=== PATIENT | female | born 1955 | race Two or more races ===

== ENCOUNTER 2016-04-10 12:01 | Inpatient (IN) | payer MEDICARE, OTHER ==
[~2016-04-10] VITALS: Ht 154.9 cm; Wt 89.9 kg
[~2016-04-10 12:01] MED LIST: ACET-2080 PO; AGGR20025 PO; ATOR20TA65 PO; CYCL-309 PO; DICL2100G TP; DIPH25CA85 PO; EXEN5PEN2 SQ; FAMO20 PO; FENO160 PO; HYDR-85 PO; INSLAN SQ; IPRA21SP2 NASAL; IPRA4AER IH; LEVO200 PO; LISI-661 PO; MELO7.5T12 PO; METF500T7 PO; MIDO5 PO; PRAS10TA6 PO; SITA100 PO; TRAZ-144 PO
[2016-04-10 12:50] LABS: GLUCOSE,POINT OF CARE 164 MG/DL (70-110)
[2016-04-10] MEDS ORDERED: NITROGLYCERIN 2% (1 GM=INCH) PACKET TP ONE (13:45)
[2016-04-10] MEDS ORDERED: ASPIRIN 81 MG CHEWABLE TABLET PO ONE (13:45)
[2016-04-10 13:49] LABS: BASOPHILS % (AUTO) 0.5 % (0.0-2.0); EOSINOPHILS % (AUTO) 1.4 % (1.0-6.0); HEMATOCRIT 31.6 % (36-46); HEMOGLOBIN 10.2 g/dL (12.0-16.0); LYMPHOCYTES # (AUTO) 2.3 K/uL (1.0-4.8); LYMPHOCYTES % (AUTO) 28.7 % (22.0-44.0); MEAN CORPUSCULAR HEMOGLOBIN 30.2 pg (26.0-34.0); MEAN CORPUSCULAR HGB CONC 32.2 G/dL (31.0-37.0); MEAN CORPUSCULAR VOLUME 94 fL (80-100); MONOCYTES # (AUTO) 0.5 K/uL (0.1-1.0); MONOCYTES % (AUTO) 5.9 % (2.0-9.0); NEUTROPHILS % (AUTO) 63.5 % (40.0-70.0); PLATELET COUNT (AUTO) 259 K/uL (150-450); RED BLOOD CELL COUNT(AUTO) 3.37 MIL/uL (4.00-5.20); RED CELL DISTRIBUTION WIDTH 13.4 % (11.5-14.5); WHITE BLOOD COUNT (AUTO) 7.9 K/uL (4.5-11.0)
[2016-04-10 13:53] LABS: ANION GAP 8 mmol/L (8-16); CALCIUM, TOTAL 8.3 mg/dL (8.8-10.5); CARBON DIOXIDE 27 mmol/L (22-29); CHLORIDE 104 mmol/L (98-107); GLOMERULAR FILTR. RATE CALC > 60 mL/min (>60); POTASSIUM 4.5 mmol/L (3.5-5.1); SODIUM SERUM 139 mmol/L (136-145); UREA NITROGEN, BLOOD 18 mg/dL (7-18)
[2016-04-10 13:59] LABS: PROTHROMBIN TIME 10.2 SEC (9.4-11.6)
[2016-04-10 14:07] LABS: B-TYPE NATRIURETIC PEPTIDE 81 pg/mL (0-100)
[2016-04-10 14:18] LABS: ALANINE AMINOTRANSFERASE 28 U/L (12-78); ASPARTATE AMINOTRANSFERASE 19 U/L (15-37); BILIRUBIN,TOTAL 0.5 mg/dL (0.1-1.0); CREATINE KINASE MB 0.6 ng/mL (0-5); CREATINE KINASE, TOTAL 83 U/L (26-192); TOTAL PROTEIN, SERUM 6.9 g/dL (6.4-8.2)
[2016-04-10 14:24] LABS: APPEARANCE,URINE CLOUDY (CLEAR); GLUCOSE, URINE (UA) NEGATIVE (NEGATIVE); KETONES,URINE NEGATIVE (NEGATIVE); LEUKOCYTE ESTERASE ,URINE TRACE (NEGATIVE); OCCULT BLOOD,URINE NEGATIVE (NEGATIVE); PH,URINE 6.5 (5.0-8.0); PROTEIN,URINE SEE CONFIRM (NEGATIVE)
[2016-04-10 14:32] LABS: ADD UA MICROSCOPIC YES
[2016-04-10 14:33] LABS: SULFOSALICYLIC ACID,URINE 3+ (Negative)
[2016-04-10 14:34] LABS: RBC,URINE None Seen /HPF (0-2); SQUAMOUS EPITHELIAL CELL,UR Many /LPF (None Seen)
[2016-04-10] MEDS ORDERED: ACETAMINOPHEN 325 MG TABLET PO PRN (15:45)
[2016-04-10] MEDS ORDERED: ONDANSETRON HCL 4 MG/2 ML VIAL IVP PRN (15:45)
[2016-04-10] MEDS ORDERED: 0.9% SODIUM CHLORIDE 10 ML SYRINGE IVP PRN (15:45)
[2016-04-10] MEDS ORDERED: METF500T4 PO (15:50)
[2016-04-10] MEDS ORDERED: LISI-662 PO (15:50)
[2016-04-10] MEDS ORDERED: ATOR40TA28 PO (15:51)
[2016-04-10 17:21] LABS: GLUCOSE,POINT OF CARE 143 MG/DL (70-110)
[2016-04-10] MEDS ORDERED: ZOLPIDEM TARTRATE 10 MG TABLET PO PRN (18:15)
[2016-04-10] MEDS ORDERED: MAGNESIUM HYDROXIDE SUSPENSION 30 ML UDCUP PO PRN (18:15)
[2016-04-10] MEDS ORDERED: DEXTROSE 50%-WATER 25 GM/50 ML SYRINGE IVP PRN (18:15)
[2016-04-10] MEDS ORDERED: BISACODYL 10 MG RECTAL RECTAL SUPPOSITORY PR PRN (18:15)
[2016-04-10] MEDS: ACETAMINOPHEN 325 MG TABLET PO PRN (19:53)
[2016-04-10 20:52] VITALS: BP 144/66
[2016-04-10] MEDS: ASPIRIN/DIPYRIDAMOLE ER 25/200 MG ER CAPSULE PO SCH (22:01)
[2016-04-10] MEDS: DICLOFENAC SODIUM 1% 100 GM GEL [2GM] TP SCH (22:01)
[2016-04-10] MEDS: INSULIN ASPART 100 UNITS/ML SQ PRN (22:02)
[2016-04-10 23:50] VITALS: BP 115/50
[2016-04-11] MEDS: ONDANSETRON HCL 4 MG/2 ML VIAL IVP PRN ×2 (00:19→08:27)
[2016-04-11] MEDS: OxyCODONE HCL/ACETAMINOPHEN 5-325 MG TABLET PO PRN ×2 (00:24→06:15)
[2016-04-11] MEDS: ALBUTEROL SULFATE/IPRATROPIUM 100-20 MCG/SPRAY 4 GM INHALER IH SCH ×3 (00:31→12:00)
[2016-04-11 04:22] VITALS: BP 116/58
[2016-04-11 06:15] VITALS: BP 134/57
[2016-04-11] MEDS ORDERED: LEVOTHYROXINE SODIUM 200 MCG TABLET PO SCH (06:30)
[2016-04-11] MEDS: INSULIN ASPART 100 UNITS/ML SQ PRN ×2 (06:32→12:13)
[2016-04-11 06:43] LABS: BASOPHILS % (AUTO) 0.4 % (0.0-2.0); EOSINOPHILS % (AUTO) 1.9 % (1.0-6.0); HEMATOCRIT 28.2 % (36-46); HEMOGLOBIN 9.1 g/dL (12.0-16.0); LYMPHOCYTES # (AUTO) 3.1 K/uL (1.0-4.8); LYMPHOCYTES % (AUTO) 37.3 % (22.0-44.0); MEAN CORPUSCULAR HEMOGLOBIN 30.5 pg (26.0-34.0); MEAN CORPUSCULAR HGB CONC 32.4 G/dL (31.0-37.0); MEAN CORPUSCULAR VOLUME 94 fL (80-100); MONOCYTES # (AUTO) 0.6 K/uL (0.1-1.0); MONOCYTES % (AUTO) 6.8 % (2.0-9.0); NEUTROPHILS # (AUTO) 4.5 K/uL (1.8-7.7); NEUTROPHILS % (AUTO) 53.6 % (40.0-70.0); PLATELET COUNT (AUTO) 228 K/uL (150-450); RED CELL DISTRIBUTION WIDTH 13.6 % (11.5-14.5); WHITE BLOOD COUNT (AUTO) 8.4 K/uL (4.5-11.0)
[2016-04-11] MEDS ORDERED: NITROGLYCERIN 2% (1 GM=INCH) PACKET TP PRN (06:45)
[2016-04-11 07:18] VITALS: BP 133/61
[2016-04-11 07:23] LABS: ALBUMIN 2.6 g/dL (3.4-5.0); BILIRUBIN,TOTAL 0.4 mg/dL (0.1-1.0); CREATININE 1.12 mg/dL (0.60-1.30); POTASSIUM 4.9 mmol/L (3.5-5.1); TOTAL PROTEIN, SERUM 6.1 g/dL (6.4-8.2)
[2016-04-11] MEDS ORDERED: MetFORMIN HCL 500 MG TABLET PO SCH (08:00)
[2016-04-11] MEDS ORDERED: MELOXICAM 7.5 MG TABLET PO SCH (08:00)
[2016-04-11 08:38] LABS: GLUCOSE COMMENT 1 Received Meds; GLUCOSE,POINT OF CARE 317 MG/DL (70-110)
[2016-04-11 08:38] LABS: GLUCOSE COMMENT 1 Received Meds; GLUCOSE,POINT OF CARE 216 MG/DL (70-110)
[2016-04-11] MEDS ORDERED: ATORVASTATIN CALCIUM 40 MG TABLET PO SCH (09:00)
[2016-04-11] MEDS ORDERED: PANTOPRAZOLE SODIUM 40 MG DR TABLET PO SCH (09:00)
[2016-04-11] MEDS ORDERED: LISINOPRIL 20 MG TABLET PO SCH (09:00)
[2016-04-11] MEDS ORDERED: SitaGLIPtin PHOSPHATE 100 MG TABLET PO SCH (09:00)
[2016-04-11] MEDS ORDERED: PRASUGREL HCL 10 MG TABLET PO SCH (09:00)
[2016-04-11] MEDS ORDERED: CYCLOBENZAPRINE HCL 10 MG TABLET PO SCH (09:00)
[2016-04-11] MEDS ORDERED: NICOTINE 14 MG/24 HOUR PATCH TD SCH (09:00)
[2016-04-11] MEDS ORDERED: FENOFIBRATE 160 MG TABLET PO SCH (09:00)
[2016-04-11] MEDS: ASPIRIN/DIPYRIDAMOLE ER 25/200 MG ER CAPSULE PO SCH (09:50)
[2016-04-11] MEDS: HEPARIN SODIUM,PORCINE 5,000 UNITS/ML VIAL SQ SCH ×2 (09:50)
[2016-04-11] MEDS: DICLOFENAC SODIUM 1% 100 GM GEL [2GM] TP SCH (09:51)
[2016-04-11 11:22] VITALS: BP 142/61
[2016-04-11] MEDS: ACETAMINOPHEN 325 MG TABLET PO PRN (12:10)
[2016-04-11] MEDS ORDERED: OMEP20 PO (14:53)
[2016-04-11] MEDS ORDERED: TraZODone HCL 50 MG TABLET PO SCH (21:00)
[2016-04-13 02:11] LABS: GLUCOSE COMMENT 1 Received Meds; GLUCOSE,POINT OF CARE 306 MG/DL (70-110)
== END 2016-04-11 15:15 | disposition home or self-care (01) | DRG 303 ==
LOC: EMS 12:04 → 5S 18:29
PROVIDERS: ADMIT Hospitalist; ATTEND Hospitalist
DX: I25.110 Atherosclerotic heart disease of native coronary artery with unstable angina pectoris (principal); E44.1 Mild protein-calorie malnutrition; D64.9 Anemia, unspecified; E03.9 Hypothyroidism, unspecified; E11.9 Type 2 diabetes mellitus without complications; E78.5 Hyperlipidemia, unspecified; I10 Essential (primary) hypertension; J44.9 Chronic obstructive pulmonary disease, unspecified; Z72.0 Tobacco use; Z86.73 Personal history of transient ischemic attack (TIA), and cerebral infarction without residual deficits; Z88.1 Allergy status to other antibiotic agents; Z88.5 Allergy status to narcotic agent; Z88.0 Allergy status to penicillin; Z88.2 Allergy status to sulfonamides; Z88.8 Allergy status to other drugs, medicaments and biological substances; Z79.899 Other long term (current) drug therapy; Z90.49 Acquired absence of other specified parts of digestive tract; Z98.890 Other specified postprocedural states
CPT/HCPCS: 82962; 87086; 93005; 93306; 99285; J1644; J2405

== ENCOUNTER 2016-08-11 16:51 | Emergency (ER) | payer OTHER ==
[~2016-08-11] VITALS: Ht 152.4 cm; Wt 88.6 kg
[~2016-08-11 16:51] MED LIST changes: -ATOR20TA65 PO; +ATOR40TA28 PO; -EXEN5PEN2 SQ; -FAMO20 PO; -IPRA21SP2 NASAL; -LISI-661 PO; +LISI-662 PO; +METF500T4 PO; -METF500T7 PO; -MIDO5 PO; +OMEP20 PO
[2016-08-11 17:40] LABS: BASOPHILS # (AUTO) 0.04 K/uL (0.00-0.20); BASOPHILS % (AUTO) 0.3 % (0.0-2.0); EOSINOPHILS # (AUTO) 0.06 K/uL (0.00-0.70); HEMATOCRIT 31.1 % (36-46); HEMOGLOBIN 10.3 g/dL (12.0-16.0); LYMPHOCYTES # (AUTO) 2.6 K/uL (1.0-4.8); LYMPHOCYTES % (AUTO) 24.4 % (22.0-44.0); MEAN CORPUSCULAR HEMOGLOBIN 30.6 pg (26.0-34.0); MEAN CORPUSCULAR HGB CONC 33.2 G/dL (31.0-37.0); MEAN CORPUSCULAR VOLUME 92 fL (80-100); MONOCYTES # (AUTO) 0.6 K/uL (0.1-1.0); MONOCYTES % (AUTO) 5.2 % (2.0-9.0); NEUTROPHILS # (AUTO) 7.4 K/uL (1.8-7.7); NEUTROPHILS % (AUTO) 69.5 % (40.0-70.0); PLATELET COUNT (AUTO) 275 K/uL (150-450); RED BLOOD CELL COUNT(AUTO) 3.37 MIL/uL (4.00-5.20); RED CELL DISTRIBUTION WIDTH 13.8 % (11.5-14.5); WHITE BLOOD COUNT (AUTO) 10.7 K/uL (4.5-11.0)
[2016-08-11 17:50] LABS: ANION GAP 10 mmol/L (8-16); CALCIUM, TOTAL 8.7 mg/dL (8.8-10.5); CARBON DIOXIDE 26 mmol/L (22-29); CHLORIDE 103 mmol/L (98-107); CREATININE 1.27 mg/dL (0.60-1.30); GLOMERULAR FILTR. RATE CALC 43 mL/min (>60); POTASSIUM 4.7 mmol/L (3.5-5.1); SODIUM SERUM 139 mmol/L (136-145); UREA NITROGEN, BLOOD 25 mg/dL (7-18)
[2016-08-11 17:56] LABS: ALANINE AMINOTRANSFERASE 32 U/L (12-78); ALBUMIN 3.2 g/dL (3.4-5.0); ASPARTATE AMINOTRANSFERASE 20 U/L (15-37); BILIRUBIN,TOTAL 0.8 mg/dL (0.1-1.0); CREATINE KINASE, TOTAL 69 U/L (26-192); TOTAL PROTEIN, SERUM 7.1 g/dL (6.4-8.2)
[2016-08-11 18:08] LABS: B-TYPE NATRIURETIC PEPTIDE 28 pg/mL (0-100)
[2016-08-11] MEDS ORDERED: PROCHLORPERAZINE EDISYLATE 5 MG/ML 2 ML VIAL IVP ONE (19:00)
[2016-08-11] MEDS ORDERED: PANTOPRAZOLE SODIUM 40 MG/VIAL IVP ONE (19:00)
[2016-08-11] MEDS ORDERED: FentaNYL CITRATE-PF 100 MCG/2 ML VIAL IVP ONE (19:00)
[2016-08-11 19:13] LABS: APPEARANCE,URINE CLEAR (CLEAR); GLUCOSE, URINE (UA) NEGATIVE (NEGATIVE); KETONES,URINE NEGATIVE (NEGATIVE); LEUKOCYTE ESTERASE ,URINE NEGATIVE (NEGATIVE); OCCULT BLOOD,URINE NEGATIVE (NEGATIVE); PROTEIN,URINE SEE CONFIRM (NEGATIVE)
[2016-08-11] MEDS ORDERED: SODIUM CHLORIDE 0.9% 1,000 ML IV ONE (19:15)
[2016-08-11 19:24] LABS: ADD UA MICROSCOPIC YES
[2016-08-11 19:28] LABS: RBC,URINE 0-2 /HPF (0-2); SQUAMOUS EPITHELIAL CELL,UR Few /LPF (None Seen); SULFOSALICYLIC ACID,URINE 4+ (Negative)
[2016-08-11] MEDS ORDERED: NITROFURANTOIN/NITROFURAN MAC 100 MG CAPSULE [MACROBID] PO ONE (21:15)
[2016-08-11 21:19] VITALS: BP 145/72
== END 2016-08-11 21:23 | disposition home or self-care (01) ==
LOC: EMS 16:53
DX: I20.8 Other forms of angina pectoris (principal); N39.0 Urinary tract infection, site not specified; E11.9 Type 2 diabetes mellitus without complications; I25.10 Atherosclerotic heart disease of native coronary artery without angina pectoris; I10 Essential (primary) hypertension; Z88.8 Allergy status to other drugs, medicaments and biological substances; Z86.73 Personal history of transient ischemic attack (TIA), and cerebral infarction without residual deficits; Z88.0 Allergy status to penicillin; Z79.4 Long term (current) use of insulin; Z88.1 Allergy status to other antibiotic agents; Z88.5 Allergy status to narcotic agent; Z88.2 Allergy status to sulfonamides
CPT/HCPCS: 36415; 74022; 80053; 81001; 81002; 82550; 83690; 83880; 84484; 85025; 87086; 93005; 96361; 96374; 96375; 99285; C9113; J0780; J3010; J7030; 82962

== ENCOUNTER 2017-04-28 08:13 | Day surgery (SDC) | payer OTHER ==
[~2017-04-28] VITALS: Ht 154.9 cm; Wt 98.2 kg
[~2017-04-28 08:13] MED LIST changes: +0.9% SODIUM CHLORIDE 10 ML SYRINGE IVP PRN
[2017-04-28] MEDS ORDERED: METOPROLOL TARTRATE 50 MG TABLET PO ONE (08:30)
[2017-04-28] MEDS ORDERED: 0.9% SODIUM CHLORIDE 10 ML SYRINGE IVP ONE (08:36)
[2017-04-28] MEDS ORDERED: IOVERSOL 350 MG/ML 150 ML VIAL ONE (09:02)
[2017-04-28 09:21] LABS: CALCIUM, TOTAL 8.6 mg/dL (8.8-10.5); CREATININE 1.2 mg/dL (0.60-1.30); POTASSIUM 4.7 mmol/L (3.5-5.1)
[2017-04-28] MEDS ORDERED: NITROGLYCERIN 400 MCG/SUBLINGUAL SPRAY 4.9 GM BOTTLE SL ONE ×2 (09:26→10:01)
[2017-04-28] MEDS ORDERED: METOPROLOL TARTRATE 5 MG/5 ML VIAL ONE (09:26)
[2017-04-28] MEDS ORDERED: METOPROLOL TARTRATE 5 MG/5 ML VIAL IVP ONE (10:09)
== END 2017-04-28 10:45 | disposition home or self-care (01) ==
LOC: SURGERY 08:13 → EDSTATUS 10:00 → SURGERY 10:45
PROVIDERS: ATTEND Internal Medicine Cardiovascular Disease
DX: I25.10 Atherosclerotic heart disease of native coronary artery without angina pectoris (principal); I35.0 Nonrheumatic aortic (valve) stenosis; E11.9 Type 2 diabetes mellitus without complications; E78.5 Hyperlipidemia, unspecified; E03.9 Hypothyroidism, unspecified; M17.0 Bilateral primary osteoarthritis of knee; M16.0 Bilateral primary osteoarthritis of hip; M19.032 Primary osteoarthritis, left wrist; M19.031 Primary osteoarthritis, right wrist; I11.9 Hypertensive heart disease without heart failure; Z86.73 Personal history of transient ischemic attack (TIA), and cerebral infarction without residual deficits; Z95.5 Presence of coronary angioplasty implant and graft; Z79.82 Long term (current) use of aspirin; Z88.1 Allergy status to other antibiotic agents; Z79.4 Long term (current) use of insulin; Z86.79 Personal history of other diseases of the circulatory system; Z88.0 Allergy status to penicillin; Z88.6 Allergy status to analgesic agent; Z88.2 Allergy status to sulfonamides; Z91.013 Allergy to seafood; Z87.891 Personal history of nicotine dependence; Z72.89 Other problems related to lifestyle; Z90.49 Acquired absence of other specified parts of digestive tract; Z85.3 Personal history of malignant neoplasm of breast; Z79.899 Other long term (current) drug therapy; Z98.890 Other specified postprocedural states; Z88.8 Allergy status to other drugs, medicaments and biological substances
CPT/HCPCS: 36415; 75574; 80048; 93005; J3490; Q9967

== ENCOUNTER 2017-12-05 13:49 | Emergency (ER) | payer OTHER ==
[~2017-12-05] VITALS: Ht 149.9 cm; Wt 95.5 kg
[~2017-12-05 13:49] MED LIST changes: -0.9% SODIUM CHLORIDE 10 ML SYRINGE IVP PRN; +ACET1TAB12 PO; -AGGR20025 PO; +AMLO-511 PO; +BACL10TA PO; +CHOL200059 PO; +EXEN5PEN2 SQ; +FAMO20 PO; -HYDR-85 PO; +INSNOV SQ; -IPRA4AER IH; +LIDOCAINE 5% PATCH TD; +LOSA25TA16 PO; -MELO7.5T12 PO; +METF-960 PO; -METF500T4 PO; +NITR.4 SL; +PROM25 PO; -TRAZ-144 PO; +TRAZ-184 PO; +VERA120 PO
[2017-12-05] MEDS ORDERED: ISOS30TA6 PO (14:03)
[2017-12-05 14:09] LABS: GLUCOSE,POINT OF CARE 148 MG/DL (70-110)
[2017-12-05 15:07] LABS: BASOPHILS % (AUTO) 0.6 % (0.0-2.0); EOSINOPHILS % (AUTO) 1.2 % (1.0-6.0); HEMATOCRIT 31.6 % (36-46); HEMOGLOBIN 10.5 g/dL (12.0-16.0); LYMPHOCYTES # (AUTO) 2.4 K/uL (1.0-4.8); LYMPHOCYTES % (AUTO) 24.1 % (22.0-44.0); MEAN CORPUSCULAR HEMOGLOBIN 29.9 pg (26.0-34.0); MEAN CORPUSCULAR HGB CONC 33.2 G/dL (31.0-37.0); MEAN CORPUSCULAR VOLUME 90 fL (80-100); MONOCYTES # (AUTO) 0.5 K/uL (0.1-1.0); MONOCYTES % (AUTO) 5.5 % (2.0-9.0); NEUTROPHILS # (AUTO) 6.8 K/uL (1.8-7.7); NEUTROPHILS % (AUTO) 68.6 % (40.0-70.0); PLATELET COUNT (AUTO) 269 K/uL (150-450); RED CELL DISTRIBUTION WIDTH 14.2 % (11.5-14.5)
[2017-12-05 15:09] LABS: CALCIUM, TOTAL 8.7 mg/dL (8.8-10.5); CREATININE 1.83 mg/dL (0.60-1.30); POTASSIUM 4.8 mmol/L (3.5-5.1)
[2017-12-05 15:15] LABS: ALBUMIN 3.1 g/dL (3.4-5.0); BILIRUBIN,TOTAL 0.4 mg/dL (0.1-1.0); TOTAL PROTEIN, SERUM 7.4 g/dL (6.4-8.2)
[2017-12-05] MEDS ORDERED: SODIUM CHLORIDE 0.9% 1,000 ML IV ONE (17:45)
[2017-12-05] MEDS ORDERED: OxyCODONE HCL/ACETAMINOPHEN 5-325 MG TABLET PO ONE (17:45)
[2017-12-05] MEDS ORDERED: ONDANSETRON HCL 4 MG/2 ML VIAL IVP ONE (17:45)
[2017-12-05] MEDS ORDERED: CHOL50004 PO (17:47)
[2017-12-05] MEDS ORDERED: LIDO700A15 TD (17:47)
[2017-12-05 18:03] LABS: APPEARANCE,URINE CLEAR (CLEAR); BILIRUBIN,URINE NEGATIVE (NEGATIVE); GLUCOSE, URINE (UA) >=1000 mg/dL (NEGATIVE); KETONES,URINE NEGATIVE (NEGATIVE); LEUKOCYTE ESTERASE ,URINE NEGATIVE (NEGATIVE); NITRATE,URINE NEGATIVE (NEGATIVE); OCCULT BLOOD,URINE NEGATIVE (NEGATIVE); PROTEIN,URINE SEE CONFIRM (NEGATIVE); UROBILINOGEN,URINE 0.2 mg/dL (<=1.0)
[2017-12-05 18:06] LABS: AMPHET/METH SCREEN,URINE NEGATIVE (NEGATIVE); BARBITURATE SCREEN, URINE NEGATIVE (NEGATIVE); BENZODIAZEPINES SCREEN,URINE NEGATIVE (NEGATIVE); CANNABINOID SCREEN,URINE NEGATIVE (NEGATIVE); COCAINE SCREEN,URINE NEGATIVE (NEGATIVE); METHADONE SCREEN, URINE NEGATIVE (NEGATIVE); OPIATE SCREEN,URINE NEGATIVE (NEGATIVE)
[2017-12-05 18:08] LABS: PHENCYCLIDINE SCREEN,URINE NEGATIVE (NEGATIVE)
[2017-12-05 18:13] LABS: SULFOSALICYLIC ACID,URINE 2+ (Negative)
[2017-12-05 18:14] LABS: BACTERIA,URINE Moderate /HPF (None Seen); RBC,URINE None Seen /HPF (0-2); SQUAMOUS EPITHELIAL CELL,UR Moderate /LPF (None Seen)
[2017-12-05] MEDS ORDERED: DIAZEPAM 5 MG/ML 2 ML SYRINGE IVP ONE (19:30)
[2017-12-05 19:36] LABS: CALCIUM, TOTAL 7.8 mg/dL (8.8-10.5); CREATININE 1.69 mg/dL (0.60-1.30)
[2017-12-05 19:59] VITALS: BP 116/60
== END 2017-12-05 20:11 | disposition home or self-care (01) ==
LOC: EMS 13:51
DX: E86.0 Dehydration (principal); G43.909 Migraine, unspecified, not intractable, without status migrainosus; M25.511 Pain in right shoulder; M25.512 Pain in left shoulder; M54.2 Cervicalgia; R07.9 Chest pain, unspecified; F41.9 Anxiety disorder, unspecified; I25.10 Atherosclerotic heart disease of native coronary artery without angina pectoris; E11.9 Type 2 diabetes mellitus without complications; E78.00 Pure hypercholesterolemia, unspecified; I10 Essential (primary) hypertension; E03.9 Hypothyroidism, unspecified; E89.0 Postprocedural hypothyroidism; Z87.440 Personal history of urinary (tract) infections; Z90.49 Acquired absence of other specified parts of digestive tract; Z86.73 Personal history of transient ischemic attack (TIA), and cerebral infarction without residual deficits; Z88.1 Allergy status to other antibiotic agents; Z88.5 Allergy status to narcotic agent; Z88.0 Allergy status to penicillin; Z88.2 Allergy status to sulfonamides; Z88.8 Allergy status to other drugs, medicaments and biological substances; Z79.4 Long term (current) use of insulin; Z79.899 Other long term (current) drug therapy; Z79.84 Long term (current) use of oral hypoglycemic drugs
CPT/HCPCS: 36415; 70450; 71045; 80048; 80053; 80307; 81001; 82948; 82962; 83690; 83880; 84484; 85025; 87086; 93005; 96361; 96374; 96375; 99285; J1885; J2405; J7030

== ENCOUNTER 2019-07-25 15:33 | Emergency (ER) | payer OTHER ==
[~2019-07-25] VITALS: Ht 152.4 cm; Wt 86.4 kg
[~2019-07-25 15:33] MED LIST changes: -ACET1TAB12 PO; -AMLO-511 PO; +CHOL125C2 PO; -CHOL200059 PO; -CYCL-309 PO; -DICL2100G TP; -DIPH25CA85 PO; -FENO160 PO; +ISOS30TA6 PO; +LIDO700A15 TD; -LIDOCAINE 5% PATCH TD; -LOSA25TA16 PO; -NITR.4 SL; +NITR0.4T52 SL; -OMEP20 PO
[2019-07-25] MEDS ORDERED: EMPA25TA PO (16:44)
[2019-07-25] MEDS ORDERED: ASPI-728 PO (16:44)
[2019-07-25] MEDS ORDERED: AMLO10TA7 PO (16:44)
[2019-07-25] MEDS ORDERED: CILO100T PO (16:44)
[2019-07-25] MEDS ORDERED: 0.9% SODIUM CHLORIDE 10 ML SYRINGE IVP PRN (17:00)
[2019-07-25 17:21] LABS: BASOPHILS % (AUTO) 0.4 % (0.0-2.0); EOSINOPHILS % (AUTO) 0.2 % (1.0-6.0); HEMATOCRIT 35.4 % (36-46); HEMOGLOBIN 11.3 g/dL (12.0-16.0); LYMPHOCYTES # (AUTO) 1.5 K/uL (1.0-4.8); LYMPHOCYTES % (AUTO) 16.5 % (22.0-44.0); MEAN CORPUSCULAR HEMOGLOBIN 30.3 pg (26.0-34.0); MEAN CORPUSCULAR HGB CONC 32.1 G/dL (31.0-37.0); MEAN CORPUSCULAR VOLUME 94 fL (80-100); MONOCYTES # (AUTO) 0.3 K/uL (0.1-1.0); MONOCYTES % (AUTO) 2.8 % (2.0-9.0); NEUTROPHILS # (AUTO) 7.3 K/uL (1.8-7.7); NEUTROPHILS % (AUTO) 80.1 % (40.0-70.0); PLATELET COUNT (AUTO) 239 K/uL (150-450); RED BLOOD CELL COUNT(AUTO) 3.75 MIL/uL (4.00-5.20); RED CELL DISTRIBUTION WIDTH 13.5 % (11.5-14.5)
[2019-07-25] MEDS ORDERED: FAMOTIDINE 10 MG/ML 2 ML VIAL IVP ONE (17:30)
[2019-07-25] MEDS ORDERED: ONDANSETRON HCL 4 MG/2 ML VIAL IVP ONE (17:30)
[2019-07-25] MEDS ORDERED: PB/HYOSCY/ATR/SCOP/LIDO/MAALOX 55 ML BOTTLE PO ONE (17:30)
[2019-07-25 17:40] LABS: CALCIUM, TOTAL 8.7 mg/dL (8.8-10.5); CREATININE 1.31 mg/dL (0.60-1.30); POTASSIUM 4.4 mmol/L (3.5-5.1)
[2019-07-25] MEDS ORDERED: SODIUM CHLORIDE 0.9% 100 ML ONE (17:45)
[2019-07-25] MEDS ORDERED: IOVERSOL 320 MG/ML 100 ML VIAL ONE (17:45)
[2019-07-25 17:46] LABS: ALBUMIN 3.5 g/dL (3.4-5.0); TOTAL PROTEIN, SERUM 7.2 g/dL (6.4-8.2)
[2019-07-25 18:03] LABS: APPEARANCE,URINE CLEAR (CLEAR); BILIRUBIN,URINE NEGATIVE (NEGATIVE); GLUCOSE, URINE (UA) >=1000 mg/dL (NEGATIVE); KETONES,URINE 15 mg/dL (NEGATIVE); LEUKOCYTE ESTERASE ,URINE NEGATIVE (NEGATIVE); NITRATE,URINE NEGATIVE (NEGATIVE); OCCULT BLOOD,URINE NEGATIVE (NEGATIVE); PROTEIN,URINE SEE CONFIRM (NEGATIVE)
[2019-07-25 18:06] LABS: SULFOSALICYLIC ACID,URINE 2+ (Negative)
[2019-07-25 18:07] LABS: BACTERIA,URINE None Seen /HPF (None Seen); RBC,URINE None Seen /HPF (0-2); SQUAMOUS EPITHELIAL CELL,UR Moderate /LPF (None Seen); WBC,URINE None Seen /HPF (0-5)
[2019-07-25] MEDS ORDERED: MORPHINE SULFATE 2 MG/ML SYRINGE IVP ONE (18:15)
[2019-07-25 18:39] LABS: LACTIC ACID 0.8 mmol/L (0.4-2.0)
[2019-07-25 19:56] VITALS: BP 128/70
== END 2019-07-25 20:34 | disposition home or self-care (01) ==
LOC: EMS 15:39
DX: R10.13 Epigastric pain (principal); R11.2 Nausea with vomiting, unspecified; F41.9 Anxiety disorder, unspecified; I25.10 Atherosclerotic heart disease of native coronary artery without angina pectoris; E11.9 Type 2 diabetes mellitus without complications; E78.00 Pure hypercholesterolemia, unspecified; I10 Essential (primary) hypertension; Z03.818 Encounter for observation for suspected exposure to other biological agents ruled out; Z90.89 Acquired absence of other organs; Z86.73 Personal history of transient ischemic attack (TIA), and cerebral infarction without residual deficits; Z88.6 Allergy status to analgesic agent; Z88.1 Allergy status to other antibiotic agents; Z88.5 Allergy status to narcotic agent; Z88.0 Allergy status to penicillin; Z88.8 Allergy status to other drugs, medicaments and biological substances; Z79.82 Long term (current) use of aspirin; Z79.4 Long term (current) use of insulin; Z79.84 Long term (current) use of oral hypoglycemic drugs
CPT/HCPCS: 36415; 71045; 74177; 80053; 81001; 83605; 83690; 84484; 85025; 85610; 93005; 96374; 96375; 99285; J2270; J2405; J3490; J7050; Q9967; U0003

== ENCOUNTER 2020-11-18 13:21 | Emergency (ER) | payer OTHER ==
[~2020-11-18] VITALS: Ht 165.1 cm; Wt 79.5 kg
[~2020-11-18 13:21] MED LIST changes: -ACET-2080 PO; +AMLO-258 PO; +ASPI-1450 PO; -CHOL125C2 PO; +CHOL500013 PO; +CILO100T PO; +EMPA25TA PO; -EXEN5PEN2 SQ; -ISOS30TA6 PO; +ISOS30TA92 PO; -LIDO700A15 TD; -LISI-662 PO; +LISI-894 PO; -NITR0.4T52 SL; -PROM25 PO
[2020-11-18 14:04] LABS: COVID AG,FIA SOURCE NASAL SWAB
[2020-11-18 14:46] LABS: BASOPHILS % (AUTO) 0.3 % (0.0-2.0); HEMATOCRIT 30.6 % (36-46); HEMOGLOBIN 9.8 g/dL (12.0-16.0); LYMPHOCYTES # (AUTO) 3.5 K/uL (1.0-4.8); LYMPHOCYTES % (AUTO) 38.1 % (22.0-44.0); MEAN CORPUSCULAR HEMOGLOBIN 31.2 pg (26.0-34.0); MEAN CORPUSCULAR HGB CONC 32.1 G/dL (31.0-37.0); MEAN CORPUSCULAR VOLUME 97 fL (80-100); MONOCYTES # (AUTO) 0.7 K/uL (0.1-1.0); MONOCYTES % (AUTO) 8.2 % (2.0-9.0); NEUTROPHILS # (AUTO) 4.7 K/uL (1.8-7.7); NEUTROPHILS % (AUTO) 51.4 % (40.0-70.0); PLATELET COUNT (AUTO) 322 K/uL (150-450); RED BLOOD CELL COUNT(AUTO) 3.15 MIL/uL (4.00-5.20); RED CELL DISTRIBUTION WIDTH 14.1 % (11.5-14.5)
[2020-11-18 15:14] LABS: ALBUMIN 3.4 g/dL (3.4-5.0); BILIRUBIN,TOTAL 0.2 mg/dL (0.1-1.0); CALCIUM, TOTAL 8.7 mg/dL (8.8-10.5); CREATININE 2.05 mg/dL (0.60-1.30); POTASSIUM 4.2 mmol/L (3.5-5.1); TOTAL PROTEIN, SERUM 6.9 g/dL (6.4-8.2)
[2020-11-18] MEDS ORDERED: ASPI-989 PO (15:53)
[2020-11-18] MEDS ORDERED: DEXTROSE 50%-WATER 25 GM/50 ML SYRINGE IVP ONE (16:00)
[2020-11-18 16:47] LABS: GLUCOMETER DEV NAME(LOC) ERT.5; GLUCOSE,POINT OF CARE 50 MG/DL (70-110)
[2020-11-18 18:20] LABS: GLUCOMETER DEV NAME(LOC) ERT.5; GLUCOSE,POINT OF CARE 108 MG/DL (70-110)
[2020-11-18 19:26] LABS: GLUCOSE,POINT OF CARE 159 MG/DL (70-110)
[2020-11-18 20:06] VITALS: BP 132/59
== END 2020-11-18 20:30 | disposition home or self-care (01) ==
LOC: EMS 13:21
DX: E11.649 Type 2 diabetes mellitus with hypoglycemia without coma (principal); I25.10 Atherosclerotic heart disease of native coronary artery without angina pectoris; E78.00 Pure hypercholesterolemia, unspecified; F41.9 Anxiety disorder, unspecified; I10 Essential (primary) hypertension; Z20.822 Contact with and (suspected) exposure to COVID-19; Z86.73 Personal history of transient ischemic attack (TIA), and cerebral infarction without residual deficits; Z79.4 Long term (current) use of insulin; Z79.899 Other long term (current) drug therapy; Z88.1 Allergy status to other antibiotic agents; Z88.5 Allergy status to narcotic agent; Z88.0 Allergy status to penicillin; Z88.2 Allergy status to sulfonamides
CPT/HCPCS: 70450; 80053; 82962; 84484; 85025; 87426; 93005; 96374; 99285; U0003; 82948

== ENCOUNTER 2022-05-15 09:43 | Inpatient (IN) | payer OTHER ==
[~2022-05-15] VITALS: Ht 152.4 cm; Wt 87.0 kg
[~2022-05-15 09:43] MED LIST changes: -ASPI-1450 PO; +ASPI-989 PO; -CILO100T PO; +CILO100T3 PO; -EMPA25TA PO; +EMPA25TA3 PO; +METF-1211 PO; -METF-960 PO; -VERA120 PO; +VERA120T21 PO
[2022-05-15 10:26] LABS: GLUCOMETER DEV NAME(LOC) ERT.5; GLUCOSE,POINT OF CARE 125 MG/DL (70-110)
[2022-05-15 10:37] LABS: BASOPHILS % (AUTO) 0.4 % (0.0-2.0); HEMATOCRIT 30.6 % (36-46); HEMOGLOBIN 10.1 g/dL (12.0-16.0); LYMPHOCYTES # (AUTO) 2.4 K/uL (1.0-4.8); LYMPHOCYTES % (AUTO) 26.1 % (22.0-44.0); MEAN CORPUSCULAR HGB CONC 33.1 G/dL (31.0-37.0); MEAN CORPUSCULAR VOLUME 94 fL (80-100); MONOCYTES # (AUTO) 0.8 K/uL (0.1-1.0); MONOCYTES % (AUTO) 8.2 % (2.0-9.0); NEUTROPHILS # (AUTO) 5.8 K/uL (1.8-7.7); NEUTROPHILS % (AUTO) 63.3 % (40.0-70.0); PLATELET COUNT (AUTO) 246 K/uL (150-450); RED BLOOD CELL COUNT(AUTO) 3.26 MIL/uL (4.00-5.20); RED CELL DISTRIBUTION WIDTH 13.5 % (11.5-14.5)
[2022-05-15 10:51] LABS: INR 0.9 (0.9-1.1); PROTHROMBIN TIME 9.8 SEC (9.4-11.6)
[2022-05-15 10:59] LABS: ALBUMIN 3.3 g/dL (3.4-5.0); BILIRUBIN,TOTAL 0.4 mg/dL (0.1-1.0); CREATININE 1.58 mg/dL (0.60-1.30); THYROID STIMULATING HORMONE 28.1 uIU/mL (0.36-3.74); TOTAL PROTEIN, SERUM 6.8 g/dL (6.4-8.2)
[2022-05-15 11:19] LABS: COVID AG,FIA SOURCE NASAL SWAB
[2022-05-15 11:21] LABS: APPEARANCE,URINE CLEAR (CLEAR); BILIRUBIN,URINE NEGATIVE (NEGATIVE); GLUCOSE, URINE (UA) 70-100 mg/dL (NEGATIVE); KETONES,URINE NEGATIVE (NEGATIVE); LEUKOCYTE ESTERASE ,URINE NEGATIVE (NEGATIVE); NITRATE,URINE NEGATIVE (NEGATIVE); OCCULT BLOOD,URINE NEGATIVE (NEGATIVE); PROTEIN,URINE NEGATIVE (NEGATIVE); SPECIFIC GRAVITIY, URINE 1.007 (1.003-1.030); UROBILINOGEN,URINE <=1.0 mg/dL (<=1.0)
[2022-05-15 11:28] LABS: AMPHET/METH SCREEN,URINE NEGATIVE (NEGATIVE); BARBITURATE SCREEN, URINE NEGATIVE (NEGATIVE); BENZODIAZEPINES SCREEN,URINE NEGATIVE (NEGATIVE); CANNABINOID SCREEN,URINE NEGATIVE (NEGATIVE); COCAINE SCREEN,URINE NEGATIVE (NEGATIVE); METHADONE SCREEN, URINE NEGATIVE (NEGATIVE); OPIATE SCREEN,URINE NEGATIVE (NEGATIVE); PHENCYCLIDINE SCREEN,URINE NEGATIVE (NEGATIVE)
[2022-05-15] MEDS ORDERED: INSULIN REGULAR, HUMAN 100 UNITS/ML IVP ONE (11:30)
[2022-05-15] MEDS ORDERED: SODIUM POLYSTYRENE SULFONATE 15 GM/60 ML SUSPENSION BOTTLE PO ONE (11:30)
[2022-05-15] MEDS ORDERED: SODIUM BICARBONATE [ADULT] 8.4% 50 MEQ/50 ML SYRINGE IVP ONE (11:30)
[2022-05-15] MEDS ORDERED: FUROSEMIDE 40 MG/4 ML VIAL IVP ONE (11:30)
[2022-05-15] MEDS ORDERED: DEXTROSE 50%-WATER 25 GM/50 ML SYRINGE IVP ONE (11:30)
[2022-05-15 11:51] LABS: BACTERIA,URINE None Seen /HPF (None Seen); RBC,URINE None Seen /HPF (0-2); SQUAMOUS EPITHELIAL CELL,UR Few /LPF (None Seen); WBC,URINE None Seen /HPF (0-5)
[2022-05-15] MEDS ORDERED: ZOLPIDEM TARTRATE 5 MG TABLET PO PRN (16:00)
[2022-05-15] MEDS ORDERED: ACETAMINOPHEN 325 MG TABLET PO PRN (16:00)
[2022-05-15] MEDS ORDERED: DEXTROSE 50%-WATER 25 GM/50 ML SYRINGE IVP PRN (16:00)
[2022-05-15] MEDS ORDERED: IPRATROPIUM BROMIDE 0.5 MG/2.5 ML NEB SOLUTION NEB PRN (16:00)
[2022-05-15] MEDS ORDERED: ALBUTEROL SULFATE 2.5 MG/0.5 ML NEB SOLUTION NEB PRN (16:00)
[2022-05-15] MEDS ORDERED: MAGNESIUM HYDROXIDE SUSPENSION 30 ML UDCUP PO PRN (16:00)
[2022-05-15] MEDS ORDERED: ONDANSETRON HCL 4 MG/2 ML VIAL IVP PRN (16:00)
[2022-05-15] MEDS ORDERED: BISACODYL 10 MG RECTAL RECTAL SUPPOSITORY PR PRN (16:00)
[2022-05-15] MEDS ORDERED: HYDR12.54 PO (16:03)
[2022-05-15] MEDS ORDERED: DULA3PEN SQ (16:03)
[2022-05-15] MEDS ORDERED: ROSU20TA73 PO (16:03)
[2022-05-15] MEDS ORDERED: AMLO5TAB66 PO (16:03)
[2022-05-15] MEDS ORDERED: FERR325T23 PO (16:03)
[2022-05-15] MEDS ORDERED: EVOL140P3 SQ (16:03)
[2022-05-15] MEDS ORDERED: CLOP75TA32 PO (16:03)
[2022-05-15] MEDS ORDERED: ASPI-1444 PO (16:03)
[2022-05-15] MEDS ORDERED: CHOL25TA4 PO (16:04)
[2022-05-15] MEDS: BENZONATATE 100 MG CAPSULE PO SCH ×2 (16:06→22:19)
[2022-05-15] MEDS: CILOSTAZOL 100 MG TABLET PO SCH (17:14)
[2022-05-15] MEDS ORDERED: MethylPREDNISolone SOD SUCC 125 MG/2 ML VIAL IVP SCH (18:00)
[2022-05-15 19:15] LABS: CREATININE 1.79 mg/dL (0.60-1.30); POTASSIUM 4.8 mmol/L (3.5-5.1)
[2022-05-15] MEDS: ALBUTEROL SULFATE 2.5 MG/0.5 ML NEB SOLUTION NEB SCH (20:00)
[2022-05-15] MEDS ORDERED: IPRATROPIUM BROMIDE 0.5 MG/2.5 ML NEB SOLUTION NEB SCH (20:00)
[2022-05-15] MEDS ORDERED: 0.9% SODIUM CHLORIDE 5 ML NEB SOLUTION NEB ONE (20:50)
[2022-05-15] MEDS: DOCUSATE SODIUM 100 MG CAPSULE PO SCH (21:00)
[2022-05-15 21:04] VITALS: BP 106/52
[2022-05-15 21:36] LABS: GLUCOMETER DEV NAME(LOC) 5S.2C; GLUCOSE,POINT OF CARE 282 MG/DL (70-110)
[2022-05-15] MEDS: GuaiFENesin SR 600 MG ER TABLET PO SCH (22:19)
[2022-05-15] MEDS: TraZODone HCL 50 MG TABLET PO SCH (22:19)
[2022-05-16] MEDS: ALBUTEROL SULFATE 2.5 MG/0.5 ML NEB SOLUTION NEB SCH ×4 (01:43→19:50)
[2022-05-16 04:58] VITALS: BP 97/55
[2022-05-16] MEDS: CILOSTAZOL 100 MG TABLET PO SCH ×2 (06:22→17:33)
[2022-05-16] MEDS: LEVOTHYROXINE SODIUM 200 MCG TABLET PO SCH (06:22)
[2022-05-16] MEDS: INSULIN LISPRO 100 UNITS/ML SQ PRN ×3 (06:23→20:45)
[2022-05-16 06:39] LABS: BASOPHILS % (AUTO) 0.5 % (0.0-2.0); EOSINOPHILS % (AUTO) 2.6 % (1.0-6.0); HEMATOCRIT 30.5 % (36-46); HEMOGLOBIN 10.2 g/dL (12.0-16.0); LYMPHOCYTES # (AUTO) 2.7 K/uL (1.0-4.8); LYMPHOCYTES % (AUTO) 36.8 % (22.0-44.0); MEAN CORPUSCULAR HEMOGLOBIN 31.6 pg (26.0-34.0); MEAN CORPUSCULAR HGB CONC 33.4 G/dL (31.0-37.0); MEAN CORPUSCULAR VOLUME 95 fL (80-100); MONOCYTES # (AUTO) 0.5 K/uL (0.1-1.0); MONOCYTES % (AUTO) 6.8 % (2.0-9.0); NEUTROPHILS # (AUTO) 3.9 K/uL (1.8-7.7); NEUTROPHILS % (AUTO) 53.3 % (40.0-70.0); PLATELET COUNT (AUTO) 245 K/uL (150-450); RED BLOOD CELL COUNT(AUTO) 3.23 MIL/uL (4.00-5.20); RED CELL DISTRIBUTION WIDTH 13.9 % (11.5-14.5)
[2022-05-16 07:43] LABS: CALCIUM, TOTAL 8.5 mg/dL (8.8-10.5); CREATININE 1.96 mg/dL (0.60-1.30); POTASSIUM 4.9 mmol/L (3.5-5.1)
[2022-05-16 07:46] VITALS: BP 90/46
[2022-05-16 08:46] LABS: GLUCOMETER DEV NAME(LOC) 5S.2C; GLUCOSE,POINT OF CARE 308 MG/DL (70-110)
[2022-05-16] MEDS: DOCUSATE SODIUM 100 MG CAPSULE PO SCH ×2 (09:00→20:50)
[2022-05-16] MEDS ORDERED: PRASUGREL HCL 10 MG TABLET PO SCH (09:00)
[2022-05-16] MEDS ORDERED: ISOSORBIDE MONONITRATE 30 MG ER TABLET PO SCH (09:00)
[2022-05-16] MEDS ORDERED: AmLODIPine BESYLATE 10 MG TABLET PO SCH (09:00)
[2022-05-16] MEDS: BENZONATATE 100 MG CAPSULE PO SCH ×3 (09:33→20:41)
[2022-05-16] MEDS: ATORVASTATIN CALCIUM 40 MG TABLET PO SCH (09:33)
[2022-05-16] MEDS: PANTOPRAZOLE SODIUM 40 MG DR TABLET PO SCH (09:33)
[2022-05-16] MEDS: GuaiFENesin SR 600 MG ER TABLET PO SCH ×2 (09:33→20:41)
[2022-05-16] MEDS: CLOPIDOGREL BISULFATE 75 MG TABLET PO SCH (09:33)
[2022-05-16] MEDS: VERAPAMIL HCL 120 MG TABLET PO SCH (09:33)
[2022-05-16 11:08] VITALS: BP 109/54
[2022-05-16 12:06] LABS: GLUCOMETER DEV NAME(LOC) 5N.1C; GLUCOSE,POINT OF CARE 399 MG/DL (70-110)
[2022-05-16] MEDS ORDERED: SODIUM CHLORIDE 0.9% 1,000 ML IV ONE (12:45)
[2022-05-16] MEDS ORDERED: DEXTROSE 50%-WATER 25 GM/50 ML SYRINGE IVP PRN (13:00)
[2022-05-16 15:38] VITALS: BP 97/42
[2022-05-16] MEDS ORDERED: INSULIN LISPRO 100 UNITS/ML SQ ONE (18:00)
[2022-05-16 19:53] VITALS: BP 99/44
[2022-05-16 20:41] LABS: GLUCOMETER DEV NAME(LOC) 5S.2C; GLUCOSE,POINT OF CARE 366 MG/DL (70-110)
[2022-05-16 20:41] LABS: GLUCOMETER DEV NAME(LOC) 5S.2C; GLUCOSE,POINT OF CARE 527 MG/DL (70-110)
[2022-05-16] MEDS: TraZODone HCL 50 MG TABLET PO SCH (20:41)
[2022-05-16] MEDS ORDERED: INSULIN GLARGINE,HUM.REC.ANLOG 100 UNITS/ML SQ SCH (21:00)
[2022-05-17] VITALS: BP 106/47
[2022-05-17] MEDS: ALBUTEROL SULFATE 2.5 MG/0.5 ML NEB SOLUTION NEB SCH ×4 (01:30→20:41)
[2022-05-17 04:00] VITALS: BP 102/46
[2022-05-17] MEDS: LEVOTHYROXINE SODIUM 200 MCG TABLET PO SCH (06:03)
[2022-05-17] MEDS: CILOSTAZOL 100 MG TABLET PO SCH ×2 (06:03→17:41)
[2022-05-17] MEDS: INSULIN LISPRO 100 UNITS/ML SQ PRN ×4 (06:10→20:24)
[2022-05-17 06:32] LABS: BASOPHILS % (AUTO) 0.5 % (0.0-2.0); HEMATOCRIT 26.6 % (36-46); HEMOGLOBIN 8.8 g/dL (12.0-16.0); LYMPHOCYTES # (AUTO) 2.9 K/uL (1.0-4.8); MEAN CORPUSCULAR HEMOGLOBIN 31.6 pg (26.0-34.0); MEAN CORPUSCULAR HGB CONC 32.9 G/dL (31.0-37.0); MEAN CORPUSCULAR VOLUME 96 fL (80-100); MONOCYTES # (AUTO) 0.6 K/uL (0.1-1.0); MONOCYTES % (AUTO) 7.4 % (2.0-9.0); NEUTROPHILS # (AUTO) 3.8 K/uL (1.8-7.7); NEUTROPHILS % (AUTO) 50.1 % (40.0-70.0); PLATELET COUNT (AUTO) 215 K/uL (150-450); RED BLOOD CELL COUNT(AUTO) 2.78 MIL/uL (4.00-5.20); RED CELL DISTRIBUTION WIDTH 13.8 % (11.5-14.5)
[2022-05-17 06:46] LABS: CALCIUM, TOTAL 7.9 mg/dL (8.8-10.5); CREATININE 2.14 mg/dL (0.60-1.30); POTASSIUM 4.7 mmol/L (3.5-5.1)
[2022-05-17 07:36] VITALS: BP 125/56
[2022-05-17] MEDS: VERAPAMIL HCL 120 MG TABLET PO SCH (08:57)
[2022-05-17] MEDS: ATORVASTATIN CALCIUM 40 MG TABLET PO SCH (08:58)
[2022-05-17] MEDS: DOCUSATE SODIUM 100 MG CAPSULE PO SCH ×2 (08:58→20:22)
[2022-05-17] MEDS: GuaiFENesin SR 600 MG ER TABLET PO SCH ×2 (08:59→20:22)
[2022-05-17] MEDS: AmLODIPine BESYLATE 5 MG TABLET PO SCH (08:59)
[2022-05-17] MEDS: CLOPIDOGREL BISULFATE 75 MG TABLET PO SCH (08:59)
[2022-05-17] MEDS: PANTOPRAZOLE SODIUM 40 MG DR TABLET PO SCH (09:00)
[2022-05-17] MEDS: BENZONATATE 100 MG CAPSULE PO SCH ×3 (09:01→20:22)
[2022-05-17] MEDS ORDERED: SODIUM CHLORIDE 0.9% 1,000 ML IV ONE (12:00)
[2022-05-17 12:23] VITALS: BP 129/74
[2022-05-17 13:06] LABS: GLUCOMETER DEV NAME(LOC) 5S.2C; GLUCOSE,POINT OF CARE 278 MG/DL (70-110)
[2022-05-17] MEDS ORDERED: PRED5DRO17 OS (14:29)
[2022-05-17] MEDS ORDERED: CIPR2.5D17 OS (14:29)
[2022-05-17] MEDS ORDERED: KETO-108 OS (14:29)
[2022-05-17 15:09] VITALS: BP 114/44
[2022-05-17] MEDS: KETOROLAC TROMETHAMINE 0.5% 5 ML OPHTHALMIC SOLUTION OS SCH ×2 (16:18→20:22)
[2022-05-17] MEDS: PrednisoLONE ACETATE 1% 5 ML OPHTHALMIC SUSPENSION OS SCH ×2 (16:18→20:22)
[2022-05-17] MEDS: CIPROFLOXACIN HCL 0.3% 2.5 ML OPHTHALMIC SOLUTION OS SCH ×2 (16:18→20:22)
[2022-05-17] MEDS ORDERED: 0.9% SODIUM CHLORIDE 5 ML NEB SOLUTION NEB ONE (20:05)
[2022-05-17 20:06] LABS: GLUCOMETER DEV NAME(LOC) 5S.2C; GLUCOSE,POINT OF CARE 315 MG/DL (70-110)
[2022-05-17] MEDS: TraZODone HCL 50 MG TABLET PO SCH (20:22)
[2022-05-17 20:35] VITALS: BP 112/43
[2022-05-17] MEDS ORDERED: INSULIN GLARGINE,HUM.REC.ANLOG 100 UNITS/ML SQ SCH (21:00)
[2022-05-17 22:21] LABS: GLUCOMETER DEV NAME(LOC) 5N.2C; GLUCOSE,POINT OF CARE 380 MG/DL (70-110)
[2022-05-18] MEDS: ALBUTEROL SULFATE 2.5 MG/0.5 ML NEB SOLUTION NEB SCH ×4 (02:00→20:17)
[2022-05-18] MEDS ORDERED: 0.9% SODIUM CHLORIDE 5 ML NEB SOLUTION NEB ONE (02:12)
[2022-05-18 04:00] VITALS: BP 116/48
[2022-05-18] MEDS: LEVOTHYROXINE SODIUM 200 MCG TABLET PO SCH (05:57)
[2022-05-18] MEDS: CILOSTAZOL 100 MG TABLET PO SCH ×2 (05:57→17:37)
[2022-05-18] MEDS: INSULIN LISPRO 100 UNITS/ML SQ PRN ×4 (06:01→21:26)
[2022-05-18 06:07] LABS: GLUCOMETER DEV NAME(LOC) 5N.1C; GLUCOSE,POINT OF CARE 260 MG/DL (70-110)
[2022-05-18 06:07] LABS: GLUCOMETER DEV NAME(LOC) 5N.1C; GLUCOSE,POINT OF CARE 319 MG/DL (70-110)
[2022-05-18 06:38] LABS: BASOPHILS % (AUTO) 0.5 % (0.0-2.0); EOSINOPHILS % (AUTO) 3.3 % (1.0-6.0); HEMATOCRIT 25.2 % (36-46); HEMOGLOBIN 8.3 g/dL (12.0-16.0); LYMPHOCYTES # (AUTO) 2.7 K/uL (1.0-4.8); LYMPHOCYTES % (AUTO) 32.9 % (22.0-44.0); MEAN CORPUSCULAR HEMOGLOBIN 31.9 pg (26.0-34.0); MEAN CORPUSCULAR HGB CONC 33.1 G/dL (31.0-37.0); MEAN CORPUSCULAR VOLUME 96 fL (80-100); MONOCYTES # (AUTO) 0.5 K/uL (0.1-1.0); MONOCYTES % (AUTO) 6.7 % (2.0-9.0); NEUTROPHILS # (AUTO) 4.6 K/uL (1.8-7.7); NEUTROPHILS % (AUTO) 56.6 % (40.0-70.0); PLATELET COUNT (AUTO) 201 K/uL (150-450); RED BLOOD CELL COUNT(AUTO) 2.62 MIL/uL (4.00-5.20); RED CELL DISTRIBUTION WIDTH 13.9 % (11.5-14.5)
[2022-05-18 07:18] LABS: CALCIUM, TOTAL 7.6 mg/dL (8.8-10.5); CREATININE 1.82 mg/dL (0.60-1.30); POTASSIUM 4.5 mmol/L (3.5-5.1)
[2022-05-18] MEDS: DOCUSATE SODIUM 100 MG CAPSULE PO SCH ×3 (09:00→19:29)
[2022-05-18] MEDS: ATORVASTATIN CALCIUM 40 MG TABLET PO SCH (09:42)
[2022-05-18] MEDS: PANTOPRAZOLE SODIUM 40 MG DR TABLET PO SCH (09:42)
[2022-05-18] MEDS: AmLODIPine BESYLATE 5 MG TABLET PO SCH (09:42)
[2022-05-18] MEDS: GuaiFENesin SR 600 MG ER TABLET PO SCH ×2 (09:42→21:14)
[2022-05-18] MEDS: CLOPIDOGREL BISULFATE 75 MG TABLET PO SCH (09:42)
[2022-05-18] MEDS: BENZONATATE 100 MG CAPSULE PO SCH ×3 (09:42→21:14)
[2022-05-18] MEDS: PrednisoLONE ACETATE 1% 5 ML OPHTHALMIC SUSPENSION OS SCH ×4 (09:43→21:15)
[2022-05-18] MEDS: VERAPAMIL HCL 120 MG TABLET PO SCH (09:43)
[2022-05-18] MEDS: CIPROFLOXACIN HCL 0.3% 2.5 ML OPHTHALMIC SOLUTION OS SCH ×4 (09:53→21:15)
[2022-05-18] MEDS: KETOROLAC TROMETHAMINE 0.5% 5 ML OPHTHALMIC SOLUTION OS SCH ×4 (09:53→21:15)
[2022-05-18 12:00] VITALS: BP 118/46
[2022-05-18 15:44] VITALS: BP 116/42
[2022-05-18 18:31] LABS: GLUCOMETER DEV NAME(LOC) 5S.1B; GLUCOSE,POINT OF CARE 324 MG/DL (70-110)
[2022-05-18 18:31] LABS: GLUCOMETER DEV NAME(LOC) 5S.1B; GLUCOSE,POINT OF CARE 341 MG/DL (70-110)
[2022-05-18 20:00] VITALS: BP 125/44
[2022-05-18] MEDS ORDERED: INSULIN GLARGINE,HUM.REC.ANLOG 100 UNITS/ML SQ SCH (21:00)
[2022-05-18] MEDS: TraZODone HCL 50 MG TABLET PO SCH (21:14)
[2022-05-18 21:32] LABS: GLUCOMETER DEV NAME(LOC) 5S.1B; GLUCOSE,POINT OF CARE 398 MG/DL (70-110)
[2022-05-19] MEDS: ALBUTEROL SULFATE 2.5 MG/0.5 ML NEB SOLUTION NEB SCH ×3 (02:00→14:44)
[2022-05-19 04:00] VITALS: BP 112/46
[2022-05-19] MEDS: LEVOTHYROXINE SODIUM 200 MCG TABLET PO SCH (06:01)
[2022-05-19] MEDS: CILOSTAZOL 100 MG TABLET PO SCH (06:01)
[2022-05-19] MEDS: INSULIN LISPRO 100 UNITS/ML SQ PRN ×2 (06:04→11:42)
[2022-05-19 07:45] VITALS: BP 139/107
[2022-05-19] MEDS: DOCUSATE SODIUM 100 MG CAPSULE PO SCH (09:00)
[2022-05-19] MEDS: BENZONATATE 100 MG CAPSULE PO SCH ×2 (09:09→16:43)
[2022-05-19] MEDS: CLOPIDOGREL BISULFATE 75 MG TABLET PO SCH (09:09)
[2022-05-19] MEDS: VERAPAMIL HCL 120 MG TABLET PO SCH (09:09)
[2022-05-19] MEDS: AmLODIPine BESYLATE 5 MG TABLET PO SCH (09:09)
[2022-05-19] MEDS: ATORVASTATIN CALCIUM 40 MG TABLET PO SCH (09:09)
[2022-05-19] MEDS: GuaiFENesin SR 600 MG ER TABLET PO SCH (09:10)
[2022-05-19] MEDS: PANTOPRAZOLE SODIUM 40 MG DR TABLET PO SCH (09:10)
[2022-05-19] MEDS: PrednisoLONE ACETATE 1% 5 ML OPHTHALMIC SUSPENSION OS SCH ×3 (09:12→16:44)
[2022-05-19] MEDS: CIPROFLOXACIN HCL 0.3% 2.5 ML OPHTHALMIC SOLUTION OS SCH ×3 (09:13→16:44)
[2022-05-19] MEDS: KETOROLAC TROMETHAMINE 0.5% 5 ML OPHTHALMIC SOLUTION OS SCH ×3 (09:13→16:44)
[2022-05-19] MEDS ORDERED: INSULIN GLARGINE,HUM.REC.ANLOG 100 UNITS/ML SQ SCH (10:00)
[2022-05-19] MEDS ORDERED: ATOR40TA28 PO (10:53)
[2022-05-19] MEDS ORDERED: DOCU-385 PO (10:54)
[2022-05-19] MEDS ORDERED: INSLAN SQ ×2 (10:55)
[2022-05-19] MEDS ORDERED: PANT-31 PO (10:57)
[2022-05-19 20:26] LABS: GLUCOMETER DEV NAME(LOC) 5S.1B; GLUCOSE,POINT OF CARE 166 MG/DL (70-110)
[2022-05-19 20:26] LABS: GLUCOMETER DEV NAME(LOC) 5S.1B; GLUCOSE,POINT OF CARE 251 MG/DL (70-110)
[2022-05-19 20:26] LABS: GLUCOMETER DEV NAME(LOC) 5S.1B; GLUCOSE,POINT OF CARE 217 MG/DL (70-110)
== END 2022-05-19 21:48 | DRG 683 ==
LOC: EMS 09:47 → AHU 13:18 → 5S 19:45
PROVIDERS: ADMIT Internal Medicine; ATTEND Internal Medicine
DX: N17.9 Acute kidney failure, unspecified (principal); E87.1 Hypo-osmolality and hyponatremia; E87.5 Hyperkalemia; E66.01 Morbid (severe) obesity due to excess calories; F25.9 Schizoaffective disorder, unspecified; Z20.822 Contact with and (suspected) exposure to COVID-19; E78.00 Pure hypercholesterolemia, unspecified; F41.9 Anxiety disorder, unspecified; G89.29 Other chronic pain; M25.569 Pain in unspecified knee; R19.7 Diarrhea, unspecified; R07.89 Other chest pain; E89.0 Postprocedural hypothyroidism; R27.0 Ataxia, unspecified; E11.40 Type 2 diabetes mellitus with diabetic neuropathy, unspecified; E11.319 Type 2 diabetes mellitus with unspecified diabetic retinopathy without macular edema; R94.6 Abnormal results of thyroid function studies; D63.8 Anemia in other chronic diseases classified elsewhere; I12.9 Hypertensive chronic kidney disease with stage 1 through stage 4 chronic kidney disease, or unspecified chronic kidney disease; E11.22 Type 2 diabetes mellitus with diabetic chronic kidney disease; E11.65 Type 2 diabetes mellitus with hyperglycemia; N18.30 Chronic kidney disease, stage 3 unspecified; I25.10 Atherosclerotic heart disease of native coronary artery without angina pectoris; I49.3 Ventricular premature depolarization; I69.30 Unspecified sequelae of cerebral infarction; Z88.0 Allergy status to penicillin; Z88.1 Allergy status to other antibiotic agents; Z88.2 Allergy status to sulfonamides; Z68.37 Body mass index [BMI] 37.0-37.9, adult; Z88.8 Allergy status to other drugs, medicaments and biological substances; Z79.899 Other long term (current) drug therapy; Z79.82 Long term (current) use of aspirin; Z79.4 Long term (current) use of insulin
CPT/HCPCS: 70450; 71045; 80048; 80053; 80307; 81001; 81003; 82550; 82947; 82962; 83880; 84443; 84484; 85025; 85610; 85730; 93005; 93306; 94640; 97116; 97162; 97166; 97530; 97535; 99291; J1815; J1940; J3490; J7030; 36415-L1; 36415-TC; J7613

== ENCOUNTER 2024-01-26 16:35 | Emergency (ER) | payer OTHER ==
[~2024-01-26] VITALS: Ht 160 cm; Wt 79.5 kg
[~2024-01-26 16:35] MED LIST changes: -AMLO-258 PO; +AMLO5TAB66 PO; -ASPI-989 PO; -BACL10TA PO; -CHOL500013 PO; +CIPR2.5D17 OS; +CLOP75TA32 PO; +DOCU-385 PO; -EMPA25TA3 PO; -FAMO20 PO; -INSNOV SQ; -ISOS30TA92 PO; +KETO-108 OS; -LISI-894 PO; -METF-1211 PO; +PANT-31 PO; -PRAS10TA6 PO; +PRED5DRO17 OS; -SITA100 PO
[2024-01-26] MEDS ORDERED: CHOL200059 PO (16:41)
[2024-01-26] MEDS ORDERED: LEVO150T11 PO (16:41)
[2024-01-26] MEDS ORDERED: FERR325T23 PO (16:41)
[2024-01-26] MEDS ORDERED: LISI40TA9 PO (16:41)
[2024-01-26] MEDS ORDERED: EMPA25TA3 PO (16:41)
[2024-01-26] MEDS ORDERED: BACL20TA PO (16:41)
[2024-01-26] MEDS ORDERED: DULA4.5P SQ (16:41)
[2024-01-26] MEDS ORDERED: INSU100I93 SQ (16:41)
[2024-01-26] MEDS ORDERED: ROSU40TA88 PO (16:41)
[2024-01-26] MEDS ORDERED: INSU100I47 SQ (16:41)
[2024-01-26] MEDS ORDERED: HYDR12.54 PO (16:41)
[2024-01-26] MEDS ORDERED: TRAZ-252 PO (16:41)
[2024-01-26 17:18] LABS: BASOPHILS % (AUTO) 0.3 % (0.0-2.0); EOSINOPHILS % (AUTO) 1.9 % (1.0-6.0); HEMOGLOBIN 10.1 g/dL (12.0-16.0); LYMPHOCYTES % (AUTO) 20.8 % (22.0-44.0); MEAN CORPUSCULAR HEMOGLOBIN 31.7 pg (26.0-34.0); MEAN CORPUSCULAR HGB CONC 32.6 G/dL (31.0-37.0); MEAN CORPUSCULAR VOLUME 97 fL (80-100); MONOCYTES # (AUTO) 0.7 K/uL (0.1-1.0); MONOCYTES % (AUTO) 7.3 % (2.0-9.0); NEUTROPHILS # (AUTO) 6.6 K/uL (1.8-7.7); NEUTROPHILS % (AUTO) 69.7 % (40.0-70.0); PLATELET COUNT (AUTO) 270 K/uL (150-450); RED BLOOD CELL COUNT(AUTO) 3.19 MIL/uL (4.00-5.20); RED CELL DISTRIBUTION WIDTH 14.9 % (11.5-14.5); WHITE BLOOD COUNT (AUTO) 9.5 K/uL (4.5-11.0)
[2024-01-26 17:25] LABS: CALCIUM, TOTAL 8.1 mg/dL (8.8-10.5); CREATININE 1.44 mg/dL (0.60-1.30); POTASSIUM 5.4 mmol/L (3.5-5.1)
[2024-01-26 19:05] LABS: COVID AG,FIA SOURCE NASAL SWAB
[2024-01-26 19:28] LABS: INFLUENZA TYPE A NEGATIVE FOR TYPE A (NEGATIVE); INFLUENZA TYPE B NEGATIVE FOR TYPE B (NEGATIVE); SARS-COV2 (COVID) ANTIGEN,FIA Negative (Negative)
[2024-01-26 19:38] LABS: APPEARANCE,URINE CLEAR (CLEAR); BILIRUBIN,URINE NEGATIVE (NEGATIVE); COLOR,URINE LIGHT YELLOW (YELLOW); GLUCOSE, URINE (UA) >=1000 mg/dL (NEGATIVE); KETONES,URINE NEGATIVE (NEGATIVE); LEUKOCYTE ESTERASE ,URINE NEGATIVE (NEGATIVE); NITRATE,URINE NEGATIVE (NEGATIVE); OCCULT BLOOD,URINE NEGATIVE (NEGATIVE); PH,URINE 5.5 (5.0-8.0); PROTEIN,URINE 30-70 mg/dL (NEGATIVE); SPECIFIC GRAVITIY, URINE 1.021 (1.003-1.030); UROBILINOGEN,URINE <=1.0 mg/dL (<=1.0)
[2024-01-26] MEDS: SODIUM CHLORIDE 0.9% 1,000 ML IV ONE (19:45)
[2024-01-26 20:12] LABS: BACTERIA,URINE Few /HPF (None Seen); RBC,URINE 0-2 /HPF (0-2); SQUAMOUS EPITHELIAL CELL,UR Moderate /LPF (None Seen)
[2024-01-26 20:42] LABS: MAGNESIUM 2.1 mg/dL (1.80-2.40)
[2024-01-26 21:58] VITALS: BP 133/69; PULSE 78; RESP 16; TEMP 97.3; O2SAT 100
== END 2024-01-26 22:03 | disposition home or self-care (01) ==
LOC: EMS 16:43
DX: R19.7 Diarrhea, unspecified (principal); R11.2 Nausea with vomiting, unspecified; R53.1 Weakness; F41.9 Anxiety disorder, unspecified; E11.65 Type 2 diabetes mellitus with hyperglycemia; E78.00 Pure hypercholesterolemia, unspecified; E03.9 Hypothyroidism, unspecified; F25.9 Schizoaffective disorder, unspecified; I10 Essential (primary) hypertension; I25.10 Atherosclerotic heart disease of native coronary artery without angina pectoris; F17.210 Nicotine dependence, cigarettes, uncomplicated; Z79.02 Long term (current) use of antithrombotics/antiplatelets; Z79.4 Long term (current) use of insulin; Z88.0 Allergy status to penicillin; Z88.1 Allergy status to other antibiotic agents; Z88.2 Allergy status to sulfonamides; Z88.5 Allergy status to narcotic agent; Z90.49 Acquired absence of other specified parts of digestive tract; Z90.89 Acquired absence of other organs; Z20.822 Contact with and (suspected) exposure to COVID-19
CPT/HCPCS: 99283; 96360; 87426; 80048; 81001; 82962; 83735; 85025; 87804; 36415; J7030